=== PATIENT | male | born 1995 | race Caucasian/White ===

== ENCOUNTER 2017-02-06 19:08 | Emergency (ER) | payer OTHER ==
--- NOTE | 2017-02-06 21:17 | EDPHY ---
H & P Time Seen by Provider: 02/06/17 19:37 HPI/ROS: CHIEF COMPLAINT: skateboard accident HISTORY OF PRESENT ILLNESS: 21-year-old male presents emergency department after a skateboard accident 2 hours prior to arrival. Patient reports he struck his head on the pavement, he sustained a laceration above his eyebrow, no loss of consciousness, no neck pain. He complains of an abrasion to his left hand. He reports he fell onto his left hip, denies pain. No problems with ambulation. No blurred vision. Patient denies headache, no vomiting, no nausea , no other complaints. Tetanus is up-to-date. REVIEW OF SYSTEMS: A comprehensive 10 point review of systems is otherwise negative aside from elements mentioned in the history of present illness. Smoking Status: Never smoked Physical Exam: GEN: Awake, alert, oriented, no acute distress HEENT: Extraocular motions intact, no facial tenderness to palpation, opens and closes mouth without difficulty, no loose teeth. RESP: nl resp effort Neuro: Grossly normal MSK: No C-spine tenderness to palpation Normal range of motion of all extremities without pain, no left wrist tenderness to palpation, full range of motion SKIN: 2 cm laceration horizontal just below left eyebrow superficial, superficial abrasion to left cheek, superficial abrasions to palm of left hand Constitutional: Initial Vital Signs Temperature (C) 36.8 C 02/06/17 19:27 Heart Rate 67 02/06/17 19:27 Respiratory Rate 15 02/06/17 19:27 Blood Pressure 127/79 H 02/06/17 19:27 O2 Sat (%) 96 02/06/17 19:27 O2 Delivery Mode Room Air Allergies/Adverse Reactions: amoxicillin Allergy (Verified 02/06/17 19:27) Home Medications: Medication Instructions Recorded NK [No Known Home Meds] 02/06/17 MDM/Departure - MDM Procedures: Procedure: Laceration repair. Verbal consent was obtained from the patient. The 2 cm laceration on the left eyebrow was anesthetized using 1% lidocaine with epinephrine. The wound was carefully irrigated by the emergency department pest control technician. Next, the wound was prepped and draped in sterile fashion and explored to its base with a gloved finger. There were no deep structures involved. No vascular injury was identified. No foreign bodies were identified. The wound was repaired with 6.0 Prolene, 7 simple interrupted sutures. The wound repair was simple. The procedure was performed by myself. Tetanus and antibiotic status were addressed. ED Course/Re-evaluation: This patient presents after a minor head injury with no headache, amnesia or LOC. Neurologic exam normal. No indication for neuro imaging. CHI precautions given. Differential Diagnosis: The differential diagnosis for the patient's head injury included but was not limited to concussion, skull fracture, intra-parenchymal contusion, subarachnoid , subdural and epidural hematoma. - Depart Disposition: Home, Routine, Self-Care Clinical Impression: Minor head injury without loss of consciousness Qualifiers: Encounter type: initial encounter Qualified Code(s): S09.90XA - Unspecified injury of head, initial encounter Condition: Good Instructions: Head Injury (ED), Facial Laceration (ED) Additional Instructions: Return to the emergency department in 5 days for suture removal, return sooner for any signs of a head injury, forceful vomiting, confusion, altered gait, any other questions or concerns. Referrals: ERNESTO Newell,. [Clinic] - As per Instructions
[2017-02-06 21:48] VITALS: BP 128/78; PULSE 70; RESP 14; TEMP 98.4; O2SAT 94
== END 2017-02-06 21:47 | disposition home or self-care (01) ==
PROC: 0HQ1XZZ Repair Face Skin, External Approach (ICD-10-PCS; principal; 2017-02-06)
DX: S09.90XA Unspecified injury of head, initial encounter (principal); S01.112A Laceration without foreign body of left eyelid and periocular area, initial encounter; V00.131A Fall from skateboard, initial encounter; Y99.8 Other external cause status; Y93.51 Activity, roller skating (inline) and skateboarding